=== PATIENT | male | born 1955 | race Caucasian/White ===

== ENCOUNTER 2019-10-20 14:32 | Inpatient (IN) | payer BC, OTHER ==
[2019-10-20] VITALS (7 sets, daily range): BP systolic 155–195; BP diastolic 70–94
[~2019-10-20] VITALS: Ht 180.3 cm; Wt 155.3 kg
[~2019-10-20 14:32] MED LIST: ASPI325T8 PO; ATOR40TA59 PO; LISI-334 PO; METF500T11 PO; METF500T16 PO; TAMS0.4C97 PO; [UNRECOGNIZED DRUG - REMARK]; [UNRECOGNIZED DRUG - REMARK]
[2019-10-20] MEDS ORDERED: fentaNYL PF VIAL 100 MCG/2 ML VIAL IV STA (14:43)
[2019-10-20] MEDS ORDERED: IV NORMAL SALINE 1000ML BAG 1,000 ML IV ONE (14:45)
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
[2019-10-20 15:00] LABS: BASO % 1 % (0-3); EOS # 0.1 x10^3/uL (0.0-0.7); EOS % 1 % (0-3); HEMATOCRIT 37.4 % (39.0-53.0); HEMOGLOBIN 12.6 g/dL (13.0-17.5); LYMPH # 1.1 x10^3/uL (1.0-4.8); LYMPH % 15 % (24-48); MEAN CORPUSCULAR HEMOGLOBIN 31 pg (25-35); MEAN CORPUSCULAR HGB CONC 34 g/dL (31-37); MEAN CORPUSCULAR VOLUME 93 fL (79-100); MONO # 0.5 x10^3/uL (0.0-1.1); MONO % 6 % (0-9); NEUT # 5.9 x10^3/uL (1.8-7.7); NEUT % 77 % (31-73); PLATELET COUNT 213 x10^3/uL (140-400); RED BLOOD COUNT 4.02 x10^6/uL (4.30-5.70); RED CELL DISTRIBUTION WIDTH 13.1 % (11.5-14.5); WHITE BLOOD COUNT 7.6 x10^3/uL (4.0-11.0)
[2019-10-20] MEDS ORDERED: CONTRAST GIVEN. MC PRN (15:00)
[2019-10-20] MEDS ORDERED: IOHEXOL 300 MG/ML 100ML VIAL. IV ONE (15:00)
[2019-10-20 15:09] LABS: PROTHROMBIN TIME PATIENT 13.6 SEC (11.7-14.0)
[2019-10-20 15:17] LABS: GFR 75.7; POTASSIUM 4.3 mmol/L (3.5-5.1)
[2019-10-20 15:21] LABS: ALBUMIN 3.7 g/dL (3.4-5.0); ALBUMIN/GLOBULIN RATIO 0.9 (1.0-1.7); TOTAL BILIRUBIN 0.4 mg/dL (0.2-1.0); TOTAL PROTEIN 7.6 g/dL (6.4-8.2)
[2019-10-20] MEDS ORDERED: MORPHINE SULFATE 10 MG/ML VIAL. IV STA (15:49)
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
[2019-10-20 16:25] LABS: BILIRUBIN,URINE NEGATIVE (NEG); CLARITY,URINE CLEAR; COLOR,URINE YELLOW; NITRITE,URINE NEGATIVE (NEG); PH,URINE 6.5; PROTEIN,URINE 30 mg/dL (NEG-TRACE); UROBILINOGEN,URINE 0.2 mg/dL (0.2 mg/dL)
[2019-10-20 16:30] LABS: BACTERIA,URINE 0 /HPF (0-FEW); RBC,URINE RARE /HPF (0-2); WBC,URINE 0 /HPF (0-4)
[2019-10-20 16:31] LABS: AMPHETAMINE/METHAMPHETAMINE NEG (NEG); BARBITURATES NEG (NEG); BENZODIAZEPINES NEG (NEG); CANNABINOIDS NEG (NEG); COCAINE NEG (NEG); METHADONE NEG (NEG); OPIATES NEG (NEG); PHENCYCLIDINE NEG (NEG); SQUAMOUS EPITHELIAL CELL,UR OCC /LPF
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
[2019-10-20] MEDS ORDERED: HYDROmorphone 2 MG/ML VIAL IVP ONE (17:15)
[2019-10-20] MEDS ORDERED: ONDANSETRON PF 4 MG/2 ML VIAL. IV PRN ×2 (18:30→20:00)
[2019-10-20] MEDS ORDERED: MORPHINE SULFATE 4 MG/ML VIAL. IV PRN (18:30)
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
[2019-10-20] MEDS ORDERED: DEXTROSE 50% 25 GM / 50ML DISP.SYRIN. IV PRN (20:00)
[2019-10-20] MEDS ORDERED: IV DEXTROSE 5% 250 ML BAG. IV PRN (20:00)
[2019-10-20] MEDS: INSULIN GLARGINE SYRINGE. SQ SCH (22:01)
[2019-10-20] MEDS: INSULIN LISPRO 300 UNITS/3 ML VIAL. SQ SCH (22:02)
[2019-10-20] MEDS: HYDROcodone/APAP 5/325MG 1 TAB TABLET PO PRN (22:03)
[2019-10-20] MEDS: ATORVASTATIN CALCIUM 40 MG TABLET. PO SCH (22:03)
[2019-10-20] MEDS: CYCLOBENZAPRINE 10 MG TABLET. PO PRN (22:03)
[2019-10-20] MEDS: HYDROmorphone 2 MG/ML VIAL IV PRN (22:11)
[2019-10-21] VITALS (20 sets, daily range): BP systolic 124–190; BP diastolic 56–97
[2019-10-21] MEDS: CYCLOBENZAPRINE 10 MG TABLET. PO PRN (04:25)
[2019-10-21] MEDS: HYDROcodone/APAP 5/325MG 1 TAB TABLET PO PRN ×2 (04:26→18:11)
--- NOTE | 2019-10-21 04:58 | NUR ---
THIS PATIENT IS BEING ADMITTED TO ICU ROOM 110 FROM THE ED. REPORT RECEIVED FROM MARILYN HUDSON. UPON ARRIVAL TO ICU PATIENT AWAKE AND ANSWERS QUESTIONS APPROPRIATELY. COMPLAINED OF PAIN TO RIGHT SHOULDER. FAMILY AT BEDSIDE. 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 ASSISTED TO BED. IVS INTACT. VSS. WILL CONTINUE TO MONITOR.
[2019-10-21 07:37] LABS: CALCIUM 8.6 mg/dL (8.5-10.1); CREATININE 0.9 mg/dL (0.7-1.3); GFR 85.5
--- NOTE | 2019-10-21 09:12 | EKG ---
[facility] [address] [place] [id number] Test Date: 2019-10-20 Test Time: 15:26:49 Pat Name: HOLLI MARIA A Department: Room: Gender: M [employer] Intern[employer]: : 1955 Requested By: HOLLI KELLER Order Number: [id number] Reading MD: Measurements Intervals [place] Rate: 96 P: 39 AK: 186 QRS: 10 QRSD: 100 T: 47 QT: 344 QTc: 441 Interpretive Statements SINUS RHYTHM QRS(T) CONTOUR ABNORMALITY CONSISTENT WITH INFERIOR INFARCT PROBABLY OLD ABNORMAL ECG RI6.01 No previous ECG available for comparison
[2019-10-21] MEDS: ASPIRIN 325 MG TABLET PO SCH (09:14)
[2019-10-21] MEDS: TAMSULOSIN 0.4 MG CAP.ER.24H. PO SCH (09:15)
[2019-10-21] MEDS: LISINOPRIL 20 MG TABLET PO SCH (09:15)
[2019-10-21] MEDS: INSULIN LISPRO 300 UNITS/3 ML VIAL. SQ SCH ×4 (09:24→21:35)
--- NOTE | 2019-10-21 10:24 | PDOC2 ---
LEE JUNG Otis [employer] 10/21/19 1024: CONSULT Date of Consult Date of Consult DATE: 10/21/19 TIME: 10:19 Reason for Consult Reason for Consult: trauma Referring Physician Referring Physician: ER Identification/Chief Complaint Chief Complaint trauma after struck by cow Source Source: Chart review, Patient History of Present Illness Reason for Visit: Struck by gate that cow had rammed--was thrown 8 feet in air, feel and 4 cows trampled him, he did have a brief LOC Currently his main complaint is pain and immobility to left shoulder mild abdominal pain, protrusion from abdomen seems worse after injury Past Medical History Cardiovascular: CAD, HTN Pulmonary: No pertinent hx CENTRAL NERVOUS SYSTEM: Other GI: GERD, GI bleed, Gastritis Heme/Onc: No pertinent hx Hepatobiliary: No pertinent hx Psych: No pertinent hx Musculoskeletal: Osteoarthritis Rheumatologic: No pertinent hx Infectious disease: No pertinent hx Renal/: No pertinent hx Endocrine: Diabetes Past Surgical History Past Surgical History: Other (cardiac stents, abd lipoma excision ) Family History Family History: Hypertension Social History <1 pack per day ALCOHOL: none Drugs: None Lives: with Family Current Problem List Problem List Problems Medical Problems: (1) Intractable pain Status: Acute (2) Trauma Status: Acute Current Medications Current Medications Current Medications Sodium Chloride 1,000 ml @ 1,000 mls/hr 1X ONCE IV Last administered on 10/20/19at 15:07; Start 10/20/19 at 14:45; Stop 10/20/19 at 15:44; Status DC Fentanyl Citrate (Fentanyl 2ml Vial) 75 mcg 1X STAT IV Last administered on 10/20/19at 15:08; Start 10/20/19 at 14:43; Stop 10/20/19 at 14:54; Status DC Iohexol (Omnipaque 300 Mg/ml) 75 ml 1X ONCE IV ; Start 10/20/19 at 15:00; Stop 10/20/19 at 15:01; Status DC Info (CONTRAST GIVEN -- Rx MONITORING) 1 each PRN DAILY PRN MC SEE COMMENTS; Start 10/20/19 at 15:00; Stop 10/22/19 at 14:59 Morphine Sulfate (Morphine Sulfate) 5 mg 1X STAT IV Last administered on 10/20/19at 16:05; Start 10/20/19 at 15:49; Stop 10/20/19 at 15:52; Status DC Hydromorphone HCl (Dilaudid) 0.5 mg 1X ONCE IVP Last administered on 10/20/19at 17:48; Start 10/20/19 at 17:15; Stop 10/20/19 at 17:16; Status DC Ondansetron HCl (Zofran) 4 mg PRN Q8HRS PRN IV NAUSEA/VOMITING; Start 10/20/19 at 18:30; Stop 10/20/19 at 19:54; Status DC Morphine Sulfate (Morphine Sulfate) 4 mg PRN Q2HR PRN IV MODERATE PAIN; Start 10/20/19 at 18:30 Ondansetron HCl (Zofran) 4 mg PRN Q4HRS PRN IV NAUSEA/VOMITING; Start 10/20/19 at 20:00 Aspirin (Anabelle Aspirin) 325 mg DAILY PO Last administered on 10/21/19at 09:14; Start 10/21/19 at 09:00 Atorvastatin Calcium (Lipitor) 40 mg QHS PO Last administered on 10/20/19at 22:03; Start 10/20/19 at 21:00 Lisinopril (Prinivil) 20 mg DAILY PO Last administered on 10/21/19 09:15; Start 10/21/19 at 09:00 Tamsulosin HCl (Flomax) 0.4 mg DAILY PO Last administered on 10/21/19 09:15; Start 10/21/19 at 09:00 Insulin Glargine (Lantus Syringe) 8 unit QHS SQ Last administered on 10/20/19at 22:01; Start 10/20/19 at 21:00 Insulin Human Lispro (HumaLOG) 0-7 UNITS TIDACHC SQ Last administered on 10/21/19at 09:24; Start 10/20/19 at 21:00 Dextrose (Dextrose 50%-Water Syringe) 12.5 gm PRN Q15MIN PRN IV SEE COMMENTS; Start 10/20/19 at 20:00 Dextrose (Iv Dextrose 5%) 250 ml PRN Q15MIN PRN IV SEE COMMENTS; Start 10/20/19 at 20:00 Acetaminophen/ Hydrocodone Bitart (Lortab 5/325) 1 tab PRN Q4HRS PRN PO PAIN Last administered on 10/21/19at 04:26; Start 10/20/19 at 20:30 Cyclobenzaprine HCl (Flexeril) 10 mg PRN Q6HRS PRN PO MUSCLE SPASMS Last administered on 10/21/19at 04:25; Start 10/20/19 at 21:00 Hydromorphone HCl (Dilaudid) 2 mg PRN Q4HRS PRN IV SEVERE PAIN Last administered on 10/20/19at 22:11; Start 10/20/19 at 21:00 Active Scripts Active Reported Atorvastatin Calcium 40 Mg Tablet 1 Tab PO QHS Lisinopril 20 Mg Tablet 1 Tab PO DAILY Metformin Hcl Er (Metformin Hcl) 500 Mg Tab.er.24h 1 Tab PO BID [unknown heart med] [unknown htn med] Flomax (Tamsulosin Hcl) 0.4 Mg Cap.er.24h 1 Cap PO DAILY Aspirin 325 Mg Tablet 1 Tab PO DAILY Allergies Allergies: Coded Allergies: No Known Drug Allergies (Unverified , 05/22/16) ROS General: No: Chills, Other (fevers ) PSYCHOLOGICAL ROS: No: Anxiety, Depression Eyes: No Blurry vision, No Double vision HEENT: No: Heacaches, Sore Throat Hematological and Lymphatic: YES: Blood Clots; No: Bleeding Problems Respiratory: No: Cough, Shortness of breath Cardiovascular: No Chest Pain, No Palpitations Gastrointestinal: Yes Other (see hpi) Genitourinary: No Dysuria, No Retention Musculoskeletal: Yes Joint Pain, Yes Muscle Pain Neurological: No Impaired Coord/balance, No Numbness/Tingling Skin: No Pruritus, No Rash Physical Exam General: Alert, Oriented X3, Cooperative, No acute distress HEENT: PERRLA, Mucous membr. moist/pink Lungs: Clear to auscultation, Normal air movement Heart: Regular rate, Normal S1, Normal S2 Abdomen: Soft, Other (diastasis recti noted, nttp, nd) Extremities: No clubbing, No cyanosis Skin: No rashes, No breakdown Neuro: Normal speech, Sensation intact Psych/Mental Status: Mental status NL, Mood NL MUSCULOSKELETAL: Other (unable to lift left arm due to shoulder pain) Vitals VITALS Vital Signs Date Time Temp Pulse Resp B/P (MAP) Pulse Ox O2 Delivery O2 Flow Rate FiO2 10/21/19 10:01 80 188/92 (124) 93 Room Air 10/21/19 09:00 14 10/21/19 08:00 98.6 98.6 10/21/19 06:00 2.0 Labs Labs Laboratory Tests Test 10/20/19 14:50 10/20/19 16:12 10/20/19 19:30 10/20/19 21:59 White Blood Count 7.6 x10^3/uL (4.0-11.0) Red Blood Count 4.02 x10^6/uL (4.30-5.70) Hemoglobin 12.6 g/dL (13.0-17.5) Hematocrit 37.4 % (39.0-53.0) Mean Corpuscular Volume 93 fL (79-100) Mean Corpuscular Hemoglobin 31 pg (25-35) Mean Corpuscular Hemoglobin Concent 34 g/dL (31-37) Red Cell Distribution Width 13.1 % (11.5-14.5) Platelet Count 213 x10^3/uL (140-400) Neutrophils (%) (Auto) 77 % (31-73) Lymphocytes (%) (Auto) 15 % (24-48) Monocytes (%) (Auto) 6 % (0-9) Eosinophils (%) (Auto) 1 % (0-3) Basophils (%) (Auto) 1 % (0-3) Neutrophils # (Auto) 5.9 x10^3/uL (1.8-7.7) Lymphocytes # (Auto) 1.1 x10^3/uL (1.0-4.8) Monocytes # (Auto) 0.5 x10^3/uL (0.0-1.1) Eosinophils # (Auto) 0.1 x10^3/uL (0.0-0.7) Basophils # (Auto) 0.0 x10^3/uL (0.0-0.2) Prothrombin Time 13.6 SEC (11.7-14.0) Prothromb Time International Ratio 1.1 (0.8-1.1) Activated Partial Thromboplast Time 28 SEC (24-38) Sodium Level 135 mmol/L (136-145) Potassium Level 4.3 mmol/L (3.5-5.1) Chloride Level 99 mmol/L (98-107) Carbon Dioxide Level 28 mmol/L (21-32) Anion Gap 8 (6-14) Blood Urea Nitrogen 13 mg/dL (8-26) Creatinine 1.0 mg/dL (0.7-1.3) Estimated GFR (Cockcroft-Gault) 75.7 BUN/Creatinine Ratio 13 (6-20) Glucose Level 219 mg/dL (70-99) Calcium Level 9.0 mg/dL (8.5-10.1) Total Bilirubin 0.4 mg/dL (0.2-1.0) Aspartate Amino Transf (AST/SGOT) 31 U/L (15-37) Alanine Aminotransferase (ALT/SGPT) 38 U/L (16-63) Alkaline Phosphatase 44 U/L (46-116) Troponin I Quantitative < 0.017 ng/mL (0.000-0.055) < 0.017 ng/mL (0.000-0.055) Total Protein 7.6 g/dL (6.4-8.2) Albumin 3.7 g/dL (3.4-5.0) Albumin/Globulin Ratio 0.9 (1.0-1.7) Ethyl Alcohol Level < 10 mg/dL (0-10) Urine Collection Type Void Urine Color Yellow Urine Clarity Clear Urine pH 6.5 Urine Specific [place] 1.010 Urine Protein 30 mg/dL (NEG-TRACE) Urine Glucose (UA) Negative mg/dL (NEG) Urine Ketones (Stick) Negative mg/dL (NEG) Urine Blood Negative (NEG) Urine Nitrite Negative (NEG) Urine Bilirubin Negative (NEG) Urine Urobilinogen Dipstick 0.2 mg/dL (0.2 mg/dL) Urine Leukocyte Esterase Negative (NEG) Urine RBC Rare /HPF (0-2) Urine WBC 0 /HPF (0-4) Urine Squamous Epithelial Cells Occ /LPF Urine Bacteria 0 /HPF (0-FEW) Urine Opiates Screen Neg (NEG) Urine Methadone Screen Neg (NEG) Urine Barbiturates Neg (NEG) Urine Phencyclidine Screen Neg (NEG) Urine Amphetamine/Methamphetamine Neg (NEG) Urine Benzodiazepines Screen Neg (NEG) Urine Cocaine Screen Neg (NEG) Urine Cannabinoids Screen Neg (NEG) Urine Ethyl Alcohol Neg (NEG) Glucose (Fingerstick) 208 mg/dL (70-99) Test 10/20/19 22:10 10/21/19 07:00 10/21/19 08:22 Troponin I Quantitative < 0.017 ng/mL (0.000-0.055) Sodium Level 136 mmol/L (136-145) Potassium Level 4.0 mmol/L (3.5-5.1) Chloride Level 100 mmol/L (98-107) Carbon Dioxide Level 27 mmol/L (21-32) Anion Gap 9 (6-14) Blood Urea Nitrogen 13 mg/dL (8-26) Creatinine 0.9 mg/dL (0.7-1.3) Estimated GFR (Cockcroft-Gault) 85.5 Glucose Level 231 mg/dL (70-99) Calcium Level 8.6 mg/dL (8.5-10.1) Creatine Kinase 124 U/L (39-308) Glucose (Fingerstick) 222 mg/dL (70-99) Laboratory Tests Test 10/20/19 14:50 10/20/19 16:12 10/20/19 19:30 10/20/19 21:59 White Blood Count 7.6 x10^3/uL (4.0-11.0) Red Blood Count 4.02 x10^6/uL (4.30-5.70) Hemoglobin 12.6 g/dL (13.0-17.5) Hematocrit 37.4 % (39.0-53.0) Mean Corpuscular Volume 93 fL (79-100) Mean Corpuscular Hemoglobin 31 pg (25-35) Mean Corpuscular Hemoglobin Concent 34 g/dL (31-37) Red Cell Distribution Width 13.1 % (11.5-14.5) Platelet Count 213 x10^3/uL (140-400) Neutrophils (%) (Auto) 77 % (31-73) Lymphocytes (%) (Auto) 15 % (24-48) Monocytes (%) (Auto) 6 % (0-9) Eosinophils (%) (Auto) 1 % (0-3) Basophils (%) (Auto) 1 % (0-3) Neutrophils # (Auto) 5.9 x10^3/uL (1.8-7.7) Lymphocytes # (Auto) 1.1 x10^3/uL (1.0-4.8) Monocytes # (Auto) 0.5 x10^3/uL (0.0-1.1) Eosinophils # (Auto) 0.1 x10^3/uL (0.0-0.7) Basophils # (Auto) 0.0 x10^3/uL (0.0-0.2) Prothrombin Time 13.6 SEC (11.7-14.0) Prothromb Time International Ratio 1.1 (0.8-1.1) Activated Partial Thromboplast Time 28 SEC (24-38) Sodium Level 135 mmol/L (136-145) Potassium Level 4.3 mmol/L (3.5-5.1) Chloride Level 99 mmol/L (98-107) Carbon Dioxide Level 28 mmol/L (21-32) Anion Gap 8 (6-14) Blood Urea Nitrogen 13 mg/dL (8-26) Creatinine 1.0 mg/dL (0.7-1.3) Estimated GFR (Cockcroft-Gault) 75.7 BUN/Creatinine Ratio 13 (6-20) Glucose Level 219 mg/dL (70-99) Calcium Level 9.0 mg/dL (8.5-10.1) Total Bilirubin 0.4 mg/dL (0.2-1.0) Aspartate Amino Transf (AST/SGOT) 31 U/L (15-37) Alanine Aminotransferase (ALT/SGPT) 38 U/L (16-63) Alkaline Phosphatase 44 U/L (46-116) Troponin I Quantitative < 0.017 ng/mL (0.000-0.055) < 0.017 ng/mL (0.000-0.055) Total Protein 7.6 g/dL (6.4-8.2) Albumin 3.7 g/dL (3.4-5.0) Albumin/Globulin Ratio 0.9 (1.0-1.7) Ethyl Alcohol Level < 10 mg/dL (0-10) Urine Collection Type Void Urine Color Yellow Urine Clarity Clear Urine pH 6.5 Urine Specific [place] 1.010 Urine Protein 30 mg/dL (NEG-TRACE) Urine Glucose (UA) Negative mg/dL (NEG) Urine Ketones (Stick) Negative mg/dL (NEG) Urine Blood Negative (NEG) Urine Nitrite Negative (NEG) Urine Bilirubin Negative (NEG) Urine Urobilinogen Dipstick 0.2 mg/dL (0.2 mg/dL) Urine Leukocyte Esterase Negative (NEG) Urine RBC Rare /HPF (0-2) Urine WBC 0 /HPF (0-4) Urine Squamous Epithelial Cells Occ /LPF Urine Bacteria 0 /HPF (0-FEW) Urine Opiates Screen Neg (NEG) Urine Methadone Screen Neg (NEG) Urine Barbiturates Neg (NEG) Urine Phencyclidine Screen Neg (NEG) Urine Amphetamine/Methamphetamine Neg (NEG) Urine Benzodiazepines Screen Neg (NEG) Urine Cocaine Screen Neg (NEG) Urine Cannabinoids Screen Neg (NEG) Urine Ethyl Alcohol Neg (NEG) Glucose (Fingerstick) 208 mg/dL (70-99) Test 10/20/19 22:10 10/21/19 07:00 10/21/19 08:22 Troponin I Quantitative < 0.017 ng/mL (0.000-0.055) Sodium Level 136 mmol/L (136-145) Potassium Level 4.0 mmol/L (3.5-5.1) Chloride Level 100 mmol/L (98-107) Carbon Dioxide Level 27 mmol/L (21-32) Anion Gap 9 (6-14) Blood Urea Nitrogen 13 mg/dL (8-26) Creatinine 0.9 mg/dL (0.7-1.3) Estimated GFR (Cockcroft-Gault) 85.5 Glucose Level 231 mg/dL (70-99) Calcium Level 8.6 mg/dL (8.5-10.1) Creatine Kinase 124 U/L (39-308) Glucose (Fingerstick) 222 mg/dL (70-99) Assessment/Plan Assessment/Plan trauma imaging normal, no gen surg needs defer shoulder pain, immobility to IPC-may need PT or ortho LASHAWN MONTES MD 10/21/19 1629: CONSULT Assessment/Plan Assessment/Plan pt seen agree with above no gen surg needs will sign off please call if needed Thanks for consult LEE JUNG APRN Oct 21, 2019 10:24 LASHAWN MONTES MD Oct 21, 2019 16:29
--- NOTE | 2019-10-21 10:33 | NUR ---
SS following for discharge planning. SS reviewed pt chart. Pt is from home with family and is currently on room air. SS will continue to follow for discharge planning.
--- NOTE | 2019-10-21 15:17 | PDOC ---
[employer] PROGRESS NOTE Chief Complaint Chief Complaint Concussion with loss of consciousness Right shoulder & leg injuries Arthritis Diabetes-Type II Hypertension CAD s/p stenting History of Present Illness History of Present Illness Patient seen and examined Discussed with RN Chart reviewed Vitals/I&O Vitals/I&O: Vital Signs Date Time Temp Pulse Resp B/P (MAP) Pulse Ox O2 Delivery O2 Flow Rate FiO2 10/21/19 13:00 93 14 155/87 (109) 94 Room Air 10/21/19 12:00 98.8 98.8 10/21/19 06:00 2.0 I & O 10/20/19 10/20/19 10/21/19 15:00 23:00 07:00 Intake Total 1000 ml Output Total 1400 ml Balance 1000 ml -1400 ml Physical Exam General: Alert, Oriented X3, Cooperative, No acute distress Heart: Regular rate, Normal S1, Normal S2, No murmurs Lungs: Clear Abdomen: Soft, Other (diastasis recti noted, nttp, nd) Extremities: No clubbing, No cyanosis Skin: No rashes, No breakdown Labs Labs: Laboratory Tests Test 10/20/19 16:12 10/20/19 19:30 10/20/19 21:59 10/20/19 22:10 Urine Collection Type Void Urine Color Yellow Urine Clarity Clear Urine pH 6.5 Urine Specific [place] 1.010 Urine Protein 30 mg/dL (NEG-TRACE) Urine Glucose (UA) Negative mg/dL (NEG) Urine Ketones (Stick) Negative mg/dL (NEG) Urine Blood Negative (NEG) Urine Nitrite Negative (NEG) Urine Bilirubin Negative (NEG) Urine Urobilinogen Dipstick 0.2 mg/dL (0.2 mg/dL) Urine Leukocyte Esterase Negative (NEG) Urine RBC Rare /HPF (0-2) Urine WBC 0 /HPF (0-4) Urine Squamous Epithelial Cells Occ /LPF Urine Bacteria 0 /HPF (0-FEW) Urine Opiates Screen Neg (NEG) Urine Methadone Screen Neg (NEG) Urine Barbiturates Neg (NEG) Urine Phencyclidine Screen Neg (NEG) Urine Amphetamine/Methamphetamine Neg (NEG) Urine Benzodiazepines Screen Neg (NEG) Urine Cocaine Screen Neg (NEG) Urine Cannabinoids Screen Neg (NEG) Urine Ethyl Alcohol Neg (NEG) Troponin I Quantitative < 0.017 ng/mL (0.000-0.055) < 0.017 ng/mL (0.000-0.055) Glucose (Fingerstick) 208 mg/dL (70-99) Test 10/21/19 07:00 10/21/19 08:22 10/21/19 12:45 Sodium Level 136 mmol/L (136-145) Potassium Level 4.0 mmol/L (3.5-5.1) Chloride Level 100 mmol/L (98-107) Carbon Dioxide Level 27 mmol/L (21-32) Anion Gap 9 (6-14) Blood Urea Nitrogen 13 mg/dL (8-26) Creatinine 0.9 mg/dL (0.7-1.3) Estimated GFR (Cockcroft-Gault) 85.5 Glucose Level 231 mg/dL (70-99) Calcium Level 8.6 mg/dL (8.5-10.1) Creatine Kinase 124 U/L (39-308) Glucose (Fingerstick) 222 mg/dL (70-99) 204 mg/dL (70-99) Review of Systems Review of Systems: Denies SOA Denies headache Assessment and Plan Assessmemt and Plan Problems Medical Problems: (1) Intractable pain Status: Acute (2) Trauma Status: Acute Concussion with loss of consciousness Right shoulder & leg injuries Arthritis Diabetes-Type II Hypertension CAD s/p stenting Plan: Move to Medicine floor PRN narcotics for pain Awaiting Ortho input Hope to discharge in A.M. Comment Review of Relevant I have reviewed the following items shashi (where applicable) has been applied. Medications: Current Medications Medications (Trade) Dose Ordered Sig/Rose Route PRN Reason Start Time Stop Time Status Last Admin Dose Admin Morphine Sulfate (Morphine Sulfate) 5 mg 1X STAT IV 10/20/19 15:49 10/20/19 15:52 DC 10/20/19 16:05 Hydromorphone HCl (Dilaudid) 0.5 mg 1X ONCE IVP 10/20/19 17:15 10/20/19 17:16 DC 10/20/19 17:48 Aspirin (Anabelle Aspirin) 325 mg DAILY PO 10/21/19 09:00 10/21/19 09:14 Atorvastatin Calcium (Lipitor) 40 mg QHS PO 10/20/19 21:00 10/20/19 22:03 Lisinopril (Prinivil) 20 mg DAILY PO 10/21/19 09:00 10/21/19 09:15 Tamsulosin HCl (Flomax) 0.4 mg DAILY PO 10/21/19 09:00 10/21/19 09:15 Insulin Glargine (Lantus Syringe) 8 unit QHS SQ 10/20/19 21:00 10/20/19 22:01 Insulin Human Lispro (HumaLOG) 0-7 UNITS TIDACHC SQ 10/20/19 21:00 10/21/19 11:30 Acetaminophen/ Hydrocodone Bitart (Lortab 5/325) 1 tab PRN Q4HRS PRN PO PAIN 10/20/19 20:30 10/21/19 04:26 Cyclobenzaprine HCl (Flexeril) 10 mg PRN Q6HRS PRN PO MUSCLE SPASMS 10/20/19 21:00 10/21/19 04:25 Hydromorphone HCl (Dilaudid) 2 mg PRN Q4HRS PRN IV SEVERE PAIN 10/20/19 21:00 10/20/19 22:11 BRITTANY BRISCOE III DO Oct 21, 2019 15:17
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
--- NOTE | 2019-10-21 16:43 | PDOC2 ---
CONSULT Date of Consult Date of Consult DATE: 10/21/19 TIME: 16:27 Reason for Consult Reason for Consult: right shoulder pain after being hit by cattle Referring Physician Referring Physician: Dr Mg Identification/Chief Complaint Chief Complaint Right shoulder pain Source Source: Chart review, Patient History of Present Illness Reason for Visit: [place] and had steer run though a gate that the lpatient was standing behind. Patient was knocked into the air falling onto his right shoulder.Patient with LOC at the site. Past Medical History Cardiovascular: CAD, HTN Pulmonary: No pertinent hx CENTRAL NERVOUS SYSTEM: Other GI: GERD, GI bleed, Gastritis Heme/Onc: No pertinent hx Hepatobiliary: No pertinent hx Psych: No pertinent hx Musculoskeletal: Osteoarthritis Rheumatologic: No pertinent hx Infectious disease: No pertinent hx Renal/: No pertinent hx Endocrine: Diabetes Past Surgical History Past Surgical History: Other (cardiac stents, abd lipoma excision ) Family History Family History: Hypertension Social History <1 pack per day ALCOHOL: none Drugs: None Lives: with Family Current Problem List Problem List Problems Medical Problems: (1) Intractable pain Status: Acute (2) Trauma Status: Acute Current Medications Current Medications Current Medications Sodium Chloride 1,000 ml @ 1,000 mls/hr 1X ONCE IV Last administered on 10/20/19at 15:07; Start 10/20/19 at 14:45; Stop 10/20/19 at 15:44; Status DC Fentanyl Citrate (Fentanyl 2ml Vial) 75 mcg 1X STAT IV Last administered on 10/20/19at 15:08; Start 10/20/19 at 14:43; Stop 10/20/19 at 14:54; Status DC Iohexol (Omnipaque 300 Mg/ml) 75 ml 1X ONCE IV ; Start 10/20/19 at 15:00; Stop 10/20/19 at 15:01; Status DC Info (CONTRAST GIVEN -- Rx MONITORING) 1 each PRN DAILY PRN MC SEE COMMENTS; Start 10/20/19 at 15:00; Stop 10/22/19 at 14:59 Morphine Sulfate (Morphine Sulfate) 5 mg 1X STAT IV Last administered on 10/20/19at 16:05; Start 10/20/19 at 15:49; Stop 10/20/19 at 15:52; Status DC Hydromorphone HCl (Dilaudid) 0.5 mg 1X ONCE IVP Last administered on 10/20/19at 17:48; Start 10/20/19 at 17:15; Stop 10/20/19 at 17:16; Status DC Ondansetron HCl (Zofran) 4 mg PRN Q8HRS PRN IV NAUSEA/VOMITING; Start 10/20/19 at 18:30; Stop 10/20/19 at 19:54; Status DC Morphine Sulfate (Morphine Sulfate) 4 mg PRN Q2HR PRN IV MODERATE PAIN; Start 10/20/19 at 18:30 Ondansetron HCl (Zofran) 4 mg PRN Q4HRS PRN IV NAUSEA/VOMITING; Start 10/20/19 at 20:00 Aspirin (Anabelle Aspirin) 325 mg DAILY PO Last administered on 10/21/19at 09:14; Start 10/21/19 at 09:00 Atorvastatin Calcium (Lipitor) 40 mg QHS PO Last administered on 10/20/19at 22:03; Start 10/20/19 at 21:00 Lisinopril (Prinivil) 20 mg DAILY PO Last administered on 10/21/19at 09:15; Start 10/21/19 at 09:00 Tamsulosin HCl (Flomax) 0.4 mg DAILY PO Last administered on 10/21/19 09:15; Start 10/21/19 at 09:00 Insulin Glargine (Lantus Syringe) 8 unit QHS SQ Last administered on 10/20/19at 22:01; Start 10/20/19 at 21:00 Insulin Human Lispro (HumaLOG) 0-7 UNITS TIDACHC SQ Last administered on 10/21/19at 11:30; Start 10/20/19 at 21:00 Dextrose (Dextrose 50%-Water Syringe) 12.5 gm PRN Q15MIN PRN IV SEE COMMENTS; Start 10/20/19 at 20:00 Dextrose (Iv Dextrose 5%) 250 ml PRN Q15MIN PRN IV SEE COMMENTS; Start 10/20/19 at 20:00 Acetaminophen/ Hydrocodone Bitart (Lortab 5/325) 1 tab PRN Q4HRS PRN PO PAIN Last administered on 10/21/19at 04:26; Start 10/20/19 at 20:30 Cyclobenzaprine HCl (Flexeril) 10 mg PRN Q6HRS PRN PO MUSCLE SPASMS Last administered on 10/21/19at 04:25; Start 10/20/19 at 21:00 Hydromorphone HCl (Dilaudid) 2 mg PRN Q4HRS PRN IV SEVERE PAIN Last administered on 10/20/19at 22:11; Start 10/20/19 at 21:00 Warfarin Sodium (Coumadin Per Pharmacy) 1 each PRN DAILY PRN MC SEE COMMENTS; Start 10/21/19 at 14:15; Status UNV Active Scripts Active Reported Atorvastatin Calcium 40 Mg Tablet 1 Tab PO QHS Lisinopril 20 Mg Tablet 1 Tab PO DAILY Metformin Hcl Er (Metformin Hcl) 500 Mg Tab.er.24h 1 Tab PO BID [unknown heart med] [unknown htn med] Flomax (Tamsulosin Hcl) 0.4 Mg Cap.er.24h 1 Cap PO DAILY Aspirin 325 Mg Tablet 1 Tab PO DAILY Allergies Allergies: Coded Allergies: No Known Drug Allergies (Unverified , 05/22/16) Physical Exam General: Alert, Oriented X3, Cooperative, moderate distress Extremities: No clubbing, No cyanosis, Normal pulses MUSCULOSKELETAL: Abnormal exam of right (Patient with mild eccymosis over anterior shoulder. Patient with equal foreign languages department chair strength bilaterally. moving fingers,wrist and elbow without restriction. Patient with moderate to severe pain with attempted passive ROM. No pain over AC joint.Moderate swelling over lateral shoulder.) Vitals VITALS Vital Signs Date Time Temp Pulse Resp B/P (MAP) Pulse Ox O2 Delivery O2 Flow Rate FiO2 10/21/19 13:00 93 14 155/87 (109) 94 Room Air 10/21/19 12:00 98.8 98.8 10/21/19 06:00 2.0 Labs Labs Laboratory Tests Test 10/20/19 14:50 10/20/19 16:12 10/20/19 19:30 10/20/19 21:59 White Blood Count 7.6 x10^3/uL (4.0-11.0) Red Blood Count 4.02 x10^6/uL (4.30-5.70) Hemoglobin 12.6 g/dL (13.0-17.5) Hematocrit 37.4 % (39.0-53.0) Mean Corpuscular Volume 93 fL (79-100) Mean Corpuscular Hemoglobin 31 pg (25-35) Mean Corpuscular Hemoglobin Concent 34 g/dL (31-37) Red Cell Distribution Width 13.1 % (11.5-14.5) Platelet Count 213 x10^3/uL (140-400) Neutrophils (%) (Auto) 77 % (31-73) Lymphocytes (%) (Auto) 15 % (24-48) Monocytes (%) (Auto) 6 % (0-9) Eosinophils (%) (Auto) 1 % (0-3) Basophils (%) (Auto) 1 % (0-3) Neutrophils # (Auto) 5.9 x10^3/uL (1.8-7.7) Lymphocytes # (Auto) 1.1 x10^3/uL (1.0-4.8) Monocytes # (Auto) 0.5 x10^3/uL (0.0-1.1) Eosinophils # (Auto) 0.1 x10^3/uL (0.0-0.7) Basophils # (Auto) 0.0 x10^3/uL (0.0-0.2) Prothrombin Time 13.6 SEC (11.7-14.0) Prothromb Time International Ratio 1.1 (0.8-1.1) Activated Partial Thromboplast Time 28 SEC (24-38) Sodium Level 135 mmol/L (136-145) Potassium Level 4.3 mmol/L (3.5-5.1) Chloride Level 99 mmol/L (98-107) Carbon Dioxide Level 28 mmol/L (21-32) Anion Gap 8 (6-14) Blood Urea Nitrogen 13 mg/dL (8-26) Creatinine 1.0 mg/dL (0.7-1.3) Estimated GFR (Cockcroft-Gault) 75.7 BUN/Creatinine Ratio 13 (6-20) Glucose Level 219 mg/dL (70-99) Calcium Level 9.0 mg/dL (8.5-10.1) Total Bilirubin 0.4 mg/dL (0.2-1.0) Aspartate Amino Transf (AST/SGOT) 31 U/L (15-37) Alanine Aminotransferase (ALT/SGPT) 38 U/L (16-63) Alkaline Phosphatase 44 U/L (46-116) Troponin I Quantitative < 0.017 ng/mL (0.000-0.055) < 0.017 ng/mL (0.000-0.055) Total Protein 7.6 g/dL (6.4-8.2) Albumin 3.7 g/dL (3.4-5.0) Albumin/Globulin Ratio 0.9 (1.0-1.7) Ethyl Alcohol Level < 10 mg/dL (0-10) Urine Collection Type Void Urine Color Yellow Urine Clarity Clear Urine pH 6.5 Urine Specific [place] 1.010 Urine Protein 30 mg/dL (NEG-TRACE) Urine Glucose (UA) Negative mg/dL (NEG) Urine Ketones (Stick) Negative mg/dL (NEG) Urine Blood Negative (NEG) Urine Nitrite Negative (NEG) Urine Bilirubin Negative (NEG) Urine Urobilinogen Dipstick 0.2 mg/dL (0.2 mg/dL) Urine Leukocyte Esterase Negative (NEG) Urine RBC Rare /HPF (0-2) Urine WBC 0 /HPF (0-4) Urine Squamous Epithelial Cells Occ /LPF Urine Bacteria 0 /HPF (0-FEW) Urine Opiates Screen Neg (NEG) Urine Methadone Screen Neg (NEG) Urine Barbiturates Neg (NEG) Urine Phencyclidine Screen Neg (NEG) Urine Amphetamine/Methamphetamine Neg (NEG) Urine Benzodiazepines Screen Neg (NEG) Urine Cocaine Screen Neg (NEG) Urine Cannabinoids Screen Neg (NEG) Urine Ethyl Alcohol Neg (NEG) Glucose (Fingerstick) 208 mg/dL (70-99) Test 10/20/19 22:10 10/21/19 07:00 10/21/19 08:22 10/21/19 12:45 Troponin I Quantitative < 0.017 ng/mL (0.000-0.055) Sodium Level 136 mmol/L (136-145) Potassium Level 4.0 mmol/L (3.5-5.1) Chloride Level 100 mmol/L (98-107) Carbon Dioxide Level 27 mmol/L (21-32) Anion Gap 9 (6-14) Blood Urea Nitrogen 13 mg/dL (8-26) Creatinine 0.9 mg/dL (0.7-1.3) Estimated GFR (Cockcroft-Gault) 85.5 Glucose Level 231 mg/dL (70-99) Calcium Level 8.6 mg/dL (8.5-10.1) Creatine Kinase 124 U/L (39-308) Glucose (Fingerstick) 222 mg/dL (70-99) 204 mg/dL (70-99) Laboratory Tests Test 10/20/19 19:30 10/20/19 21:59 10/20/19 22:10 10/21/19 07:00 Troponin I Quantitative < 0.017 ng/mL (0.000-0.055) < 0.017 ng/mL (0.000-0.055) Glucose (Fingerstick) 208 mg/dL (70-99) Sodium Level 136 mmol/L (136-145) Potassium Level 4.0 mmol/L (3.5-5.1) Chloride Level 100 mmol/L (98-107) Carbon Dioxide Level 27 mmol/L (21-32) Anion Gap 9 (6-14) Blood Urea Nitrogen 13 mg/dL (8-26) Creatinine 0.9 mg/dL (0.7-1.3) Estimated GFR (Cockcroft-Gault) 85.5 Glucose Level 231 mg/dL (70-99) Calcium Level 8.6 mg/dL (8.5-10.1) Creatine Kinase 124 U/L (39-308) Test 10/21/19 08:22 10/21/19 12:45 Glucose (Fingerstick) 222 mg/dL (70-99) 204 mg/dL (70-99) Images Images No fracture or dislocation noted in right shoulder CT studies neg with cervicle , thorasic, and lumbar spine Assessment/Plan Assessment/Plan Patient with blunt trauma r/t being hit by fence after steer rammed the gate. motor and sensation intact distally at the fingers,wrist and elbow. Patient states falling onto right shoulder 2 times previously in recent past. With repeated injuries to same shoulder will require rest,icing and antiinflammatory meds. We can follow patient as outpatient in clinic of right arm continues to be painful and may require MRI after 2-3 weeks of recovery time. SILVINA CHEUNG APRN Oct 21, 2019 16:43
--- NOTE | 2019-10-21 18:05 | NUR ---
Pt here from ICU via bed per MARILYN Dang. Pt pulled over to bed per Laurence, rates pain to R arm 05/21. Family at bedside.
--- NOTE | 2019-10-21 18:18 | NUR ---
TRansfer per bed to 408 w report called 30 min prior to transfer. Accucheck complete/ insulin administered prior to transfer. Nina informed of room change and need for new tray.
[2019-10-21] MEDS: ATORVASTATIN CALCIUM 40 MG TABLET. PO SCH (21:19)
[2019-10-21] MEDS: HYDROmorphone 2 MG/ML VIAL IV PRN (21:20)
[2019-10-21] MEDS: INSULIN GLARGINE SYRINGE. SQ SCH (21:33)
--- NOTE | 2019-10-21 21:38 | NUR ---
Pt requested lunch box and eating at insulin administration. 6 units for sliding scale of 275 administered. Will monitor Pt.
[2019-10-21 23:08] LABS: HEMOGLOBIN A1C 9.8 % (4.8-5.6)
[2019-10-22 03:00] VITALS: BP 146/66
[2019-10-22 07:15] VITALS: BP 148/72
[2019-10-22] MEDS: TAMSULOSIN 0.4 MG CAP.ER.24H. PO SCH (07:51)
[2019-10-22] MEDS: HYDROcodone/APAP 5/325MG 1 TAB TABLET PO PRN ×2 (07:52→13:39)
[2019-10-22] MEDS: ASPIRIN 325 MG TABLET PO SCH (07:52)
[2019-10-22] MEDS: LISINOPRIL 20 MG TABLET PO SCH (07:52)
[2019-10-22 07:55] LABS: CALCIUM 8.4 mg/dL (8.5-10.1); CREATININE 0.9 mg/dL (0.7-1.3); GFR 85.5; POTASSIUM 4.4 mmol/L (3.5-5.1)
[2019-10-22] MEDS: INSULIN LISPRO 300 UNITS/3 ML VIAL. SQ SCH ×2 (07:55→11:51)
[2019-10-22 11:15] VITALS: BP 112/63
[2019-10-22] MEDS ORDERED: CYCL10TA2 PO (12:27)
[2019-10-22] MEDS ORDERED: HYDR-2761 PO (12:27)
[2019-10-22] MEDS ORDERED: POLY17PO29 PO (12:27)
--- NOTE | 2019-10-22 12:28 | SNU/HH DC ---
DISCHARGE WITH HOME HEALTH DISCHARGE INFORMATION: Discharge Date: Oct 22, 2019 Final Diagnosis: Problems Medical Problems: (1) Intractable pain Status: Acute (2) Trauma Status: Acute Condition on Discharge: Stable CODE STATUS: Code Status: Full HOME HEALTH: Face to Face: I certify this patient is under my care and that I, or a nurse practitioner or physician's campus administrative assistant working with me, had a face to face encounter that meets the physician face to face encounter requirements with this patient on 10/22 Medical Complications: Other (trauma, injury) Care Home For: Assess & Educate Safety, Medication Management RN For Eval/Treatment: Yes Physical Therapy For: Evalulation/Treatment Pt Meets Homebound Status: Extreme weakness w/ amb., Other: (s/p trauma) POST DISCHARGE ORDERS: Activity Instructions for Disc: Activity as tolerated Weight Bearing Status after Di: As tolerated DIET AFTER DISCHARGE: ADA Wound/Incision Care: Keep wound elevated CHECKS AFTER DISCHARGE: Checks after discharge: Check blood press - daily, Check blood sugar, ac/hs FOLLOW-UP: Follow up with: ortho 2 or 3 weeks TREATMENT/EQUIPMENT ORDERS: Adaptive Equipment Issued: Wheelchair CERTIFICATION STATEMENT: Certification Statement: Certification Statement: Based on the above finding, I certify that this patient is confined to the home and needs intermittent mcc care, physical therapy and/or speech therapy, or continues to need occupational therapy.~ This patient is under my care, and I have initiated the establishment of the plan of care.~ This patient will be followed by myself or a community physician who will periodically review the plan of care. Home Meds Active Scripts Polyethylene Glycol 3350 (MIRALAX) 17 Gm Powd.pack, 1 PACKET PO DAILY for constipation for 14 Days, #14 PACKET 0 Refills dissolve in water Prov:MELODY AGUAYO MD 10/22/19 Hydrocodone Bit/Acetaminophen (HYDROCODONE-APAP 5-325 ) 1 Tab Tablet, 1 TAB PO PRN Q4HRS PRN for PAIN, #30 TAB Prov:MELODY AGUAYO MD 10/22/19 Cyclobenzaprine Hcl (CYCLOBENZAPRINE HCL) 10 Mg Tablet, 10 MG PO PRN Q6HRS PRN for MUSCLE SPASMS, #30 TAB Prov:MELODY AGUAYO MD 10/22/19 Reported Medications Atorvastatin Calcium (ATORVASTATIN CALCIUM) 40 Mg Tablet, 1 TAB PO QHS, #90 TAB 3 Refills 05/23/16 Lisinopril (LISINOPRIL) 20 Mg Tablet, 1 TAB PO DAILY, #30 TAB 5 Refills 05/23/16 Metformin Hcl (METFORMIN HCL ER) 500 Mg Tab.er.24h, 1 TAB PO BID, #180 TAB 3 Refills 05/23/16 [unknown heart med] No Conflict Check 05/22/16 [unknown htn med] No Conflict Check 05/22/16 Tamsulosin Hcl (FLOMAX) 0.4 Mg Cap.er.24h, 1 CAP PO DAILY, #30 CAP 11 Refills 05/22/16 Aspirin (ASPIRIN) 325 Mg Tablet, 1 TAB PO DAILY, #30 TAB 5 Refills 05/22/16 MELODY AGUAYO MD Oct 22, 2019 12:28
--- NOTE | 2019-10-22 12:31 | PDOC3 ---
Discharge Summary Visit Information Date of Admission: Oct 20, 2019 Date of Discharge: Oct 22, 2019 Final Diagnosis Concussion - with loss of consciousness. he was struck by a gate, launched 8 feet in the air, and trampled by 4 head cattle Right shoulder, leg injuries - - f/u ortho , may need surg Arthritis - notable on trauma images Diabetes-Type II - poor control, poor compiance, morbid obesity, BMI 48 tobacco use disorder, has chewed tobacco since age 7 Hypertension - cont home meds CAD s/p stenting - trend troponins after trauma Chest Pain Indications Problems Medical Problems: (1) Intractable pain Status: Acute (2) Trauma Status: Acute Brief Hospital Course Allergies Allergies Coded Allergies Type Severity Reaction Last Updated Verified No Known Drug Allergies 05/22/16 No Vital Signs Vital Signs Date Time Temp Pulse Resp B/P (MAP) Pulse Ox O2 Delivery O2 Flow Rate FiO2 10/22/19 11:15 97.9 71 18 112/63 (79) 96 Room Air 97.9 Lab Results Laboratory Tests Test 10/20/19 14:50 10/20/19 16:12 10/20/19 19:30 10/20/19 21:59 White Blood Count 7.6 x10^3/uL (4.0-11.0) Red Blood Count 4.02 x10^6/uL (4.30-5.70) Hemoglobin 12.6 g/dL (13.0-17.5) Hematocrit 37.4 % (39.0-53.0) Mean Corpuscular Volume 93 fL (79-100) Mean Corpuscular Hemoglobin 31 pg (25-35) Mean Corpuscular Hemoglobin Concent 34 g/dL (31-37) Red Cell Distribution Width 13.1 % (11.5-14.5) Platelet Count 213 x10^3/uL (140-400) Neutrophils (%) (Auto) 77 % (31-73) Lymphocytes (%) (Auto) 15 % (24-48) Monocytes (%) (Auto) 6 % (0-9) Eosinophils (%) (Auto) 1 % (0-3) Basophils (%) (Auto) 1 % (0-3) Neutrophils # (Auto) 5.9 x10^3/uL (1.8-7.7) Lymphocytes # (Auto) 1.1 x10^3/uL (1.0-4.8) Monocytes # (Auto) 0.5 x10^3/uL (0.0-1.1) Eosinophils # (Auto) 0.1 x10^3/uL (0.0-0.7) Basophils # (Auto) 0.0 x10^3/uL (0.0-0.2) Prothrombin Time 13.6 SEC (11.7-14.0) Prothromb Time International Ratio 1.1 (0.8-1.1) Activated Partial Thromboplast Time 28 SEC (24-38) Sodium Level 135 mmol/L (136-145) Potassium Level 4.3 mmol/L (3.5-5.1) Chloride Level 99 mmol/L (98-107) Carbon Dioxide Level 28 mmol/L (21-32) Anion Gap 8 (6-14) Blood Urea Nitrogen 13 mg/dL (8-26) Creatinine 1.0 mg/dL (0.7-1.3) Estimated GFR (Cockcroft-Gault) 75.7 BUN/Creatinine Ratio 13 (6-20) Glucose Level 219 mg/dL (70-99) Hemoglobin A1c 9.8 % (4.8-5.6) Calcium Level 9.0 mg/dL (8.5-10.1) Total Bilirubin 0.4 mg/dL (0.2-1.0) Aspartate Amino Transf (AST/SGOT) 31 U/L (15-37) Alanine Aminotransferase (ALT/SGPT) 38 U/L (16-63) Alkaline Phosphatase 44 U/L (46-116) Troponin I Quantitative < 0.017 ng/mL (0.000-0.055) < 0.017 ng/mL (0.000-0.055) Total Protein 7.6 g/dL (6.4-8.2) Albumin 3.7 g/dL (3.4-5.0) Albumin/Globulin Ratio 0.9 (1.0-1.7) Ethyl Alcohol Level < 10 mg/dL (0-10) Urine Collection Type Void Urine Color Yellow Urine Clarity Clear Urine pH 6.5 Urine Specific [place] 1.010 Urine Protein 30 mg/dL (NEG-TRACE) Urine Glucose (UA) Negative mg/dL (NEG) Urine Ketones (Stick) Negative mg/dL (NEG) Urine Blood Negative (NEG) Urine Nitrite Negative (NEG) Urine Bilirubin Negative (NEG) Urine Urobilinogen Dipstick 0.2 mg/dL (0.2 mg/dL) Urine Leukocyte Esterase Negative (NEG) Urine RBC Rare /HPF (0-2) Urine WBC 0 /HPF (0-4) Urine Squamous Epithelial Cells Occ /LPF Urine Bacteria 0 /HPF (0-FEW) Urine Opiates Screen Neg (NEG) Urine Methadone Screen Neg (NEG) Urine Barbiturates Neg (NEG) Urine Phencyclidine Screen Neg (NEG) Urine Amphetamine/Methamphetamine Neg (NEG) Urine Benzodiazepines Screen Neg (NEG) Urine Cocaine Screen Neg (NEG) Urine Cannabinoids Screen Neg (NEG) Urine Ethyl Alcohol Neg (NEG) Glucose (Fingerstick) 208 mg/dL (70-99) Test 10/20/19 22:10 10/21/19 07:00 10/21/19 08:22 10/21/19 12:45 Troponin I Quantitative < 0.017 ng/mL (0.000-0.055) Sodium Level 136 mmol/L (136-145) Potassium Level 4.0 mmol/L (3.5-5.1) Chloride Level 100 mmol/L (98-107) Carbon Dioxide Level 27 mmol/L (21-32) Anion Gap 9 (6-14) Blood Urea Nitrogen 13 mg/dL (8-26) Creatinine 0.9 mg/dL (0.7-1.3) Estimated GFR (Cockcroft-Gault) 85.5 Glucose Level 231 mg/dL (70-99) Calcium Level 8.6 mg/dL (8.5-10.1) Creatine Kinase 124 U/L (39-308) Glucose (Fingerstick) 222 mg/dL (70-99) 204 mg/dL (70-99) Test 10/21/19 17:39 10/21/19 20:04 10/22/19 06:10 10/22/19 07:29 Glucose (Fingerstick) 218 mg/dL (70-99) 275 mg/dL (70-99) 209 mg/dL (70-99) Sodium Level 136 mmol/L (136-145) Potassium Level 4.4 mmol/L (3.5-5.1) Chloride Level 98 mmol/L (98-107) Carbon Dioxide Level 28 mmol/L (21-32) Anion Gap 10 (6-14) Blood Urea Nitrogen 13 mg/dL (8-26) Creatinine 0.9 mg/dL (0.7-1.3) Estimated GFR (Cockcroft-Gault) 85.5 Glucose Level 205 mg/dL (70-99) Calcium Level 8.4 mg/dL (8.5-10.1) Creatine Kinase 135 U/L (39-308) Test 10/22/19 11:27 Glucose (Fingerstick) 242 mg/dL (70-99) Laboratory Tests Test 10/21/19 12:45 10/21/19 17:39 10/21/19 20:04 10/22/19 06:10 Glucose (Fingerstick) 204 mg/dL (70-99) 218 mg/dL (70-99) 275 mg/dL (70-99) Sodium Level 136 mmol/L (136-145) Potassium Level 4.4 mmol/L (3.5-5.1) Chloride Level 98 mmol/L (98-107) Carbon Dioxide Level 28 mmol/L (21-32) Anion Gap 10 (6-14) Blood Urea Nitrogen 13 mg/dL (8-26) Creatinine 0.9 mg/dL (0.7-1.3) Estimated GFR (Cockcroft-Gault) 85.5 Glucose Level 205 mg/dL (70-99) Calcium Level 8.4 mg/dL (8.5-10.1) Creatine Kinase 135 U/L (39-308) Test 10/22/19 07:29 10/22/19 11:27 Glucose (Fingerstick) 209 mg/dL (70-99) 242 mg/dL (70-99) Brief Hospital Course Mr. Silva is a 64 old male, trauma admit, trampled by cows, struck by a gate. concussed. post concussion syndrome. still severe shoulder pain, will need f/u with orhto in 3 weeks. can walk, has pain, but can manage Discharge Information Condition at Discharge: Improved Follow Up: Weeks Disposition/Orders: D/C to Home w/ HH Scheduled Aspirin (Aspirin) 325 Mg Tablet, 1 TAB PO DAILY, #30 Ref 5 (Reported) Entered as Reported by: DELFINA VALVERDE on 05/22/161533 Last Action: Continued on 10/20/191954 by PAULO PECK MD Atorvastatin Calcium (Atorvastatin Calcium) 40 Mg Tablet, 1 TAB PO QHS, #90 Ref 3 (Reported) Entered as Reported by: MALICK GAMINO on 05/23/16916 Last Action: Continued on 10/20/191954 by PAULO PECK MD Lisinopril (Lisinopril) 20 Mg Tablet, 1 TAB PO DAILY, #30 Ref 5 (Reported) Entered as Reported by: MALICK GAMINO on 05/23/16916 Last Action: Continued on 10/20/191954 by PAULO PECK MD Metformin Hcl (Metformin Hcl Er) 500 Mg Tab.er.24h, 1 TAB PO BID, #180 Ref 3 (Reported) Entered as Reported by: MALICK GAMINO on 05/23/16916 Polyethylene Glycol 3350 (Miralax) 17 Gm Powd.pack, 1 PACKET PO DAILY for constipation for 14 Days, #14 Ref 0 dissolve in water Prescribed by: MELODY AGUAYO on 10/22/19 1227 Tamsulosin Hcl (Flomax) 0.4 Mg Cap.er.24h, 1 CAP PO DAILY, #30 Ref 11 (Reported) Entered as Reported by: DELFINA VALVERDE on 05/22/161533 Last Action: Continued on 10/20/191954 by PAULO PECK MD Scheduled PRN Cyclobenzaprine Hcl (Cyclobenzaprine Hcl) 10 Mg Tablet, 10 MG PO PRN Q6HRS PRN for MUSCLE SPASMS, #30 Prescribed by: MELODY AGUAYO on 10/22/19 1227 Hydrocodone Bit/Acetaminophen (Hydrocodone-Apap 5-325 ) 1 Tab Tablet, 1 TAB PO PRN Q4HRS PRN for PAIN, #30 Prescribed by: MELODY AGUAYO on 10/22/19 1227 Miscellaneous Medications [unknown heart med] , (Reported) Entered as Reported by: DELFINA VALVERDE on 05/22/161533 [unknown htn med] , (Reported) Entered as Reported by: DELFINA VALVERDE on 05/22/161533 Patient Instructions Patient Instructions > 30 min face to face MELODY AGUAYO MD Oct 22, 2019 12:31
[2019-10-22] MEDS ORDERED: POLYETHYLENE GLYCOL 3350 17 GM PACKET. PO ONE (12:45)
--- NOTE | 2019-10-22 12:58 | PDOC ---
PROGRESS NOTES Subjective Subjective He still has weakness of the right shoulder, minimal pain if he stays motionless with the shoulder. The right leg is still somewhat painful even at rest. Objective Vital Signs Vital Signs Date Time Temp Pulse Resp B/P (MAP) Pulse Ox O2 Delivery O2 Flow Rate FiO2 10/22/19 11:15 97.9 71 18 112/63 (79) 96 Room Air 97.9 10/21/19 06:00 2.0 Physical Exam The right shoulder still has a significant drop arm sign. There is no evidence of compartment syndrome. The skin is intact. The gross alignment is normal without distinct evidence of dislocation. Passive range of motion is somewhat p ainful, and active elevation and abduction are impossible, presumably due to rotator cuff tear. Elbow function, distal neurovascular exam are unremarkable. Labs Laboratory Tests Test 10/20/19 14:50 10/20/19 16:12 10/20/19 19:30 10/20/19 21:59 White Blood Count 7.6 x10^3/uL (4.0-11.0) Red Blood Count 4.02 x10^6/uL (4.30-5.70) Hemoglobin 12.6 g/dL (13.0-17.5) Hematocrit 37.4 % (39.0-53.0) Mean Corpuscular Volume 93 fL (79-100) Mean Corpuscular Hemoglobin 31 pg (25-35) Mean Corpuscular Hemoglobin Concent 34 g/dL (31-37) Red Cell Distribution Width 13.1 % (11.5-14.5) Platelet Count 213 x10^3/uL (140-400) Neutrophils (%) (Auto) 77 % (31-73) Lymphocytes (%) (Auto) 15 % (24-48) Monocytes (%) (Auto) 6 % (0-9) Eosinophils (%) (Auto) 1 % (0-3) Basophils (%) (Auto) 1 % (0-3) Neutrophils # (Auto) 5.9 x10^3/uL (1.8-7.7) Lymphocytes # (Auto) 1.1 x10^3/uL (1.0-4.8) Monocytes # (Auto) 0.5 x10^3/uL (0.0-1.1) Eosinophils # (Auto) 0.1 x10^3/uL (0.0-0.7) Basophils # (Auto) 0.0 x10^3/uL (0.0-0.2) Prothrombin Time 13.6 SEC (11.7-14.0) Prothromb Time International Ratio 1.1 (0.8-1.1) Activated Partial Thromboplast Time 28 SEC (24-38) Sodium Level 135 mmol/L (136-145) Potassium Level 4.3 mmol/L (3.5-5.1) Chloride Level 99 mmol/L (98-107) Carbon Dioxide Level 28 mmol/L (21-32) Anion Gap 8 (6-14) Blood Urea Nitrogen 13 mg/dL (8-26) Creatinine 1.0 mg/dL (0.7-1.3) Estimated GFR (Cockcroft-Gault) 75.7 BUN/Creatinine Ratio 13 (6-20) Glucose Level 219 mg/dL (70-99) Hemoglobin A1c 9.8 % (4.8-5.6) Calcium Level 9.0 mg/dL (8.5-10.1) Total Bilirubin 0.4 mg/dL (0.2-1.0) Aspartate Amino Transf (AST/SGOT) 31 U/L (15-37) Alanine Aminotransferase (ALT/SGPT) 38 U/L (16-63) Alkaline Phosphatase 44 U/L (46-116) Troponin I Quantitative < 0.017 ng/mL (0.000-0.055) < 0.017 ng/mL (0.000-0.055) Total Protein 7.6 g/dL (6.4-8.2) Albumin 3.7 g/dL (3.4-5.0) Albumin/Globulin Ratio 0.9 (1.0-1.7) Ethyl Alcohol Level < 10 mg/dL (0-10) Urine Collection Type Void Urine Color Yellow Urine Clarity Clear Urine pH 6.5 Urine Specific Farnsworth 1.010 Urine Protein 30 mg/dL (NEG-TRACE) Urine Glucose (UA) Negative mg/dL (NEG) Urine Ketones (Stick) Negative mg/dL (NEG) Urine Blood Negative (NEG) Urine Nitrite Negative (NEG) Urine Bilirubin Negative (NEG) Urine Urobilinogen Dipstick 0.2 mg/dL (0.2 mg/dL) Urine Leukocyte Esterase Negative (NEG) Urine RBC Rare /HPF (0-2) Urine WBC 0 /HPF (0-4) Urine Squamous Epithelial Cells Occ /LPF Urine Bacteria 0 /HPF (0-FEW) Urine Opiates Screen Neg (NEG) Urine Methadone Screen Neg (NEG) Urine Barbiturates Neg (NEG) Urine Phencyclidine Screen Neg (NEG) Urine Amphetamine/Methamphetamine Neg (NEG) Urine Benzodiazepines Screen Neg (NEG) Urine Cocaine Screen Neg (NEG) Urine Cannabinoids Screen Neg (NEG) Urine Ethyl Alcohol Neg (NEG) Glucose (Fingerstick) 208 mg/dL (70-99) Test 10/20/19 22:10 10/21/19 07:00 10/21/19 08:22 10/21/19 12:45 Troponin I Quantitative < 0.017 ng/mL (0.000-0.055) Sodium Level 136 mmol/L (136-145) Potassium Level 4.0 mmol/L (3.5-5.1) Chloride Level 100 mmol/L (98-107) Carbon Dioxide Level 27 mmol/L (21-32) Anion Gap 9 (6-14) Blood Urea Nitrogen 13 mg/dL (8-26) Creatinine 0.9 mg/dL (0.7-1.3) Estimated GFR (Cockcroft-Gault) 85.5 Glucose Level 231 mg/dL (70-99) Calcium Level 8.6 mg/dL (8.5-10.1) Creatine Kinase 124 U/L (39-308) Glucose (Fingerstick) 222 mg/dL (70-99) 204 mg/dL (70-99) Test 10/21/19 17:39 10/21/19 20:04 10/22/19 06:10 10/22/19 07:29 Glucose (Fingerstick) 218 mg/dL (70-99) 275 mg/dL (70-99) 209 mg/dL (70-99) Sodium Level 136 mmol/L (136-145) Potassium Level 4.4 mmol/L (3.5-5.1) Chloride Level 98 mmol/L (98-107) Carbon Dioxide Level 28 mmol/L (21-32) Anion Gap 10 (6-14) Blood Urea Nitrogen 13 mg/dL (8-26) Creatinine 0.9 mg/dL (0.7-1.3) Estimated GFR (Cockcroft-Gault) 85.5 Glucose Level 205 mg/dL (70-99) Calcium Level 8.4 mg/dL (8.5-10.1) Creatine Kinase 135 U/L (39-308) Test 10/22/19 11:27 Glucose (Fingerstick) 242 mg/dL (70-99) Laboratory Tests Test 10/21/19 17:39 10/21/19 20:04 10/22/19 06:10 10/22/19 07:29 Glucose (Fingerstick) 218 mg/dL (70-99) 275 mg/dL (70-99) 209 mg/dL (70-99) Sodium Level 136 mmol/L (136-145) Potassium Level 4.4 mmol/L (3.5-5.1) Chloride Level 98 mmol/L (98-107) Carbon Dioxide Level 28 mmol/L (21-32) Anion Gap 10 (6-14) Blood Urea Nitrogen 13 mg/dL (8-26) Creatinine 0.9 mg/dL (0.7-1.3) Estimated GFR (Cockcroft-Gault) 85.5 Glucose Level 205 mg/dL (70-99) Calcium Level 8.4 mg/dL (8.5-10.1) Creatine Kinase 135 U/L (39-308) Test 10/22/19 11:27 Glucose (Fingerstick) 242 mg/dL (70-99) Imaging I reviewed the shoulder x-rays and the reports. I don't believe there is a p osterior dislocation, however there is a slight "light bulb sign" but occult posterior dislocation seems unlikely based on the Y view images, and the exam. Assessment Assessment Right shoulder injury. I do suspect a rotator cuff tear. Plan Plan of Care Even if a significant cuff tear is present, urgent surgery is not recommended. I would like him to recover from the overall trauma, the concussion, etc. for a few weeks before I would proceed with rotator cuff repair surgery (if surgery is even needed). I will obtain an MRI as an outpatient of the right shoulder without contrast to evaluate for possible rotator cuff tear. He and his family agree. VALENTIN WATKINS MD Oct 22, 2019 12:58
[2019-10-22] MEDS ORDERED: DOCUSATE SODIUM 100 MG CAPSULE. PO SCH (13:00)
--- NOTE | 2019-10-22 13:11 | NUR ---
SW following. Discussed with RN, pt discharging home with family care and home health today. JERMAINE met with pt, pt agreeable to home health. Would like [facility] as his family member has used them before. JERMAINE faxed referral to [facility], awaiting acceptance decision. Pt having MRI done outpatient. JERMAINE will continue to follow. RN notified. Addendum: 10/22/19 at 1426 by TALI DEAN [facility] is unable to staff pt. [facility] is out of network. JERMAINE met with pt, pt agreeable to [facility] if [facility] is unable to accept pt.
--- NOTE | 2019-10-22 15:02 | NUR ---
Patient left around 1450 with his . Discharge education completed by this nurse. Scripts given to patient/. Both IVs were discontinued without complications. No concerns noted upon discharge.
== END 2019-10-22 14:55 | disposition home or self-care (01) | DRG 89 ==
LOC: ER 14:32 → 1 WEST ICU 18:39 → OBSVTOIN 18:39 → 4 NORTH 10-21 18:15
PROVIDERS: ADMIT Internal Medicine; ATTEND Internal Medicine
DX: S06.0X9A Concussion with loss of consciousness of unspecified duration, initial encounter (principal); Z68.42 Body mass index [BMI] 45.0-49.9, adult; E11.9 Type 2 diabetes mellitus without complications; E66.01 Morbid (severe) obesity due to excess calories; F17.210 Nicotine dependence, cigarettes, uncomplicated; I10 Essential (primary) hypertension; W55.22XA Struck by cow, initial encounter; I25.10 Atherosclerotic heart disease of native coronary artery without angina pectoris; M19.90 Unspecified osteoarthritis, unspecified site; M48.061 Spinal stenosis, lumbar region without neurogenic claudication; N28.1 Cyst of kidney, acquired; Z82.49 Family history of ischemic heart disease and other diseases of the circulatory system; Z95.5 Presence of coronary angioplasty implant and graft; K21.9 Gastro-esophageal reflux disease without esophagitis
CPT/HCPCS: 36415; 70450; 71260; 72125; 73030; 73552; 74177; 80048; 80053; 80307; 81001; 82550; 82962; 83036; 84484; 85025; 85610; 85730; 86850; 86900; 86901; 93005; 96361; 96374; 96375; G0480; J1170; J1815; J2270; J3010; J7030; 99285-25; G0378